=== PATIENT | female | born 1955 | race Caucasian/White ===

== ENCOUNTER 2016-07-11 10:27 | Emergency (ER) | payer MEDICARE ==
[~2016-07-11] VITALS: Ht 152.4 cm; Wt 43.0 kg
[~2016-07-11 10:27] MED LIST: CYMB60CA PO; HUMSS SQ; LANTUS2P SQ; LEVO.1 PO; LIPI40TA PO; NEXI40CA PO; REST30CA PO
[2016-07-11 10:37] VITALS: BP 136/79; PULSE 119; RESP 16; TEMP 99.3; O2SAT 96
[2016-07-11] MEDS ORDERED: LEVO.1 PO (10:53)
[2016-07-11] MEDS ORDERED: NEXI40CA PO (10:53)
[2016-07-11] MEDS ORDERED: CYMB60CA PO (10:53)
[2016-07-11] MEDS ORDERED: LIPI40TA PO (10:53)
[2016-07-11] MEDS ORDERED: HUMALOG SQ (10:53)
[2016-07-11] MEDS ORDERED: REST30CA PO (10:53)
[2016-07-11] MEDS ORDERED: LANTUS2P SQ (10:53)
[2016-07-11] MEDS ORDERED: AUGM875T PO (10:55)
[2016-07-11] MEDS ORDERED: ASPI81CH7 CHEW (10:55)
--- NOTE | 2016-07-11 10:55 | PD ---
HPI . Bite Chief Complaint: Bite or Sting Time Seen by Provider: 10:50 Travel History International Travel<30 days: No Contact w/Intl Traveler<30days: No Traveled to known affect area: No History of Present Illness HPI Patient presents with right hand pain and swelling following a cat bite. She was bitten by her own inside cat yesterday. About 6 hours later, she developed redness, warmth and swelling. She states that it is not really painful. She reports minimal drainage. She thinks that she may be running a low-grade fever. The pain is exacerbated by movement. Pain is relieved by holding the hand still. Pain is minimal. PFSH Past Medical History Hx Anticoagulant Therapy: Yes (asa 81mg) Arthritis: Yes Depression: Yes Cardiovascular Problems: Yes (htn on meds) COPD: Yes (CHRONIC BRONCHITIS) Cerebrovascular Accident: No Diabetes: Yes (type 1) Patient Takes Glucophage: No Diminished Hearing: No Endocrine: Yes (TYPE I DM) Gastrointestinal Disorders: No Genitourinary: No Headaches: No Hypertension: Yes Immune Disorder: No Implanted Vascular Access Dvce: Yes Musculoskeletal: Yes Neurologic: Yes (MILD NEUROPATHY & TREMORS) Psychiatric: Yes Respiratory: Yes Migraines: No Seizures: Yes (hx 12seizures in past per pt ) Thyroid Disease: Yes Triglycerides - High: Yes Tetanus Vaccination: < 5 Years Influenza Vaccination: Yes ?: Not Menopausal: Yes Tubal Ligation: Yes Past Surgical History Body Medical Devices: BREASTS Eye Surgery: Yes (LASER SURGERY) Insulin Pump: Yes Neurologic Surgery: No Tonsillectomy: Yes Other Surgery: Yes (BREAST AUGMENTATION) Family History Family Hypercholesterolemia: Yes Social History Alcohol Use: No Tobacco Use: No Substance Use: No Allergies-Medications (Allergen,Severity, Reaction): Coded Allergies: Sulfa (Verified Allergy, Severe, RASH, 07/11/16) Reported Meds & Prescriptions Reported Meds & Active Scripts Active Review of Systems Except as stated in HPI: all other systems reviewed are Neg General / Constitutional: Positive: Fever Skin: Positive Change in Pigmentation Physical Exam Narrative GENERAL: Awake and alert and in no acute distress. SKIN: Warm and dry. There is a scab across the dorsal aspect of the second MCP joint. The surrounding skin is red, hot, swollen and tender. She is able to flex and extend the finger. CARDIOVASCULAR: Regular rate and rhythm. RESPIRATORY: No accessory muscle use. MUSCULOSKELETAL: No obvious deformities. No edema. NEUROLOGICAL: Awake and alert. No obvious cranial nerve deficits. Motor grossly within normal limits. Normal speech. PSYCHIATRIC: Appropriate mood and affect; insight and judgment normal. Data Data Last Documented VS Vital Signs Date Time Temp Pulse Resp B/P Pulse Ox O2 Delivery O2 Flow Rate FiO2 07/11/16 10:37 99.3 119 16 136/79 96 MDM Medical Decision Making Medical Screen Exam Complete: Yes Emergency Medical Condition: Yes Differential Diagnosis My differential diagnosis includes but is not limited to localized wound infection, cellulitis, abscess Narrative Course Patient presents with redness, warmth, swelling and tenderness in the right hand following a cat bite. Her tetanus is up-to-date. There is no concern for rabies in the cat. The patient states that the cat is strictly an inside cat. Diagnosis Primary Impression: Cellulitis of hand, right Patient Instructions: Cellulitis (DC), General Instructions Med/Other Pt SpecificInfo: Prescription(s) given Scripts Amoxicillin-Clavulanate (Augmentin)875-125 mg [id number] Mg PO BID 10 Days Ref 0 not for use in CrCl <30 ml/min. Prov:Abbi Serrato MD 07/11/16 Disposition: 01 DISCHARGE HOME Condition: Stable Abbi Serrato MD Jul 11, 2016 10:55
== END 2016-07-11 11:27 | disposition home or self-care (01) ==
LOC: PHED 10:27
DX: L03.113 Cellulitis of right upper limb (principal); W55.01XA Bitten by cat, initial encounter; Y93.9 Activity, unspecified; Y92.019 Unspecified place in single-family (private) house as the place of occurrence of the external cause; Y99.9 Unspecified external cause status
CPT/HCPCS: 99283